=== PATIENT | female | born 1990 | race Caucasian/White ===

== ENCOUNTER 2016-08-18 09:46 | Day surgery (SDC) | payer OTHER ==
[2016-08-17 11:49] VITALS: BMI 23.8
[~2016-08-18] VITALS: Ht 165.1 cm; Wt 68.6 kg
[2016-08-18] VITALS (12 sets, daily range): BP systolic 103–125; BP diastolic 58–79; PULSE 87–120; RESP 14–27; Ht 165.1 cm; Wt 68.6 kg
[2016-08-18] MEDS ORDERED: [UNRECOGNIZED DRUG - CODE] PO (10:43)
[2016-08-18] MEDS ORDERED: HYDR-3025 PO (11:19)
[2016-08-18] MEDS ORDERED: IBUP400T22 PO (11:19)
--- NOTE | 2016-08-18 11:47 | HPN ---
Date/Time of Note Date/Time of Note DATE: 08/18/16 TIME: 11:46 Interval H&P Admission Note Pt. seen H&P reviewed: No system changes BEN DENIS MD Aug 18, 2016 11:46
[2016-08-18] MEDS ORDERED: CEFAZOLIN 2 GM/50 ML (PMX) 50 ML IVPB ONE (13:00)
[2016-08-18] MEDS ORDERED: GABAPENTIN 300 MG CAP PO ONE (13:00)
[2016-08-18] MEDS ORDERED: oxyCODONE (CR) 10 MG TAB [oxyCONTIN] PO ONE (13:00)
[2016-08-18] MEDS ORDERED: traMADol 50 MG TAB PO ONE (13:00)
[2016-08-18] MEDS ORDERED: BUPIVACAINE 0.5% (SDV) 30 ML, morphine SULFATE (PF) 8 MG, EPINEPHrine 0.3 MG, KETOROLAC... IRR SCH ×7 (13:00)
[2016-08-18] MEDS ORDERED: DEXAMETHASONE 2 MG TAB PO ONE (13:00)
[2016-08-18] MEDS ORDERED: TRIAMCINOLONE ACET 40 MG/ML INJ ONE (13:03)
[2016-08-18] MEDS ORDERED: FENTAnyl 50 MCG/ML VIAL ONE (13:53)
[2016-08-18] MEDS ORDERED: MIDAZOLAM 1 MG/ML 2 ML INJ ONE (13:54)
[2016-08-18] MEDS ORDERED: ONDANSETRON 4 MG INJ IV PRN (15:00)
[2016-08-18] MEDS ORDERED: MEPERIDINE 25 MG INJ IV PRN (15:00)
[2016-08-18] MEDS ORDERED: METOCLOPRAMIDE 10 MG INJ IV PRN (15:00)
[2016-08-18] MEDS ORDERED: HYDROmorphONE (0.2 MG/ML) 10ML SYG IV PRN ×2 (15:00)
[2016-08-18] MEDS ORDERED: FENTAnyl 50 MCG/ML VIAL IV PRN (15:00)
[2016-08-18] MEDS ORDERED: DIPHENHYDRAMINE 50 MG INJ IV PRN (15:00)
[2016-08-18] MEDS ORDERED: PROPOFOL 20 ML ONE (15:01)
[2016-08-18] MEDS ORDERED: LIDOCAINE 2% (SDV) 5 ML INJ ONE (15:01)
[2016-08-18] MEDS ORDERED: ONDANSETRON 4 MG INJ ONE (15:01)
[2016-08-18] MEDS ORDERED: ROCURONIUM 50 MG INJ ONE (15:01)
[2016-08-18] MEDS ORDERED: NEOSTIGMINE 3 MG/3 ML SYRINGE ONE (15:14)
[2016-08-18] MEDS ORDERED: GLYCOPYRROLATE 1 MG INJ ONE (15:14)
[2016-08-18] MEDS ORDERED: CEFAZOLIN 1 GM INJ ONE (15:15)
--- NOTE | 2016-08-18 15:18 | PDOCDIS ---
Discharge Instructions DIAGNOSIS Discharge Diagnosis: Bilateral hip labral tears CONDITION Patient Condition: Good HOME CARE INSTRUCTIONS: Diet Instructions: Regular ACTIVITY: Activity Restrictions: Slowly Increase Activity Keep Limb Elevated Bathing Restrictions: Shower FOLLOW UP/APPOINTMENTS Appointments 2 weeks SCHOOL/WORK RELEASE May return to School/Work with: With Restrictions School/Work Release Comment: Foot Flat weightbearing with crutches for four weeks BEN DENIS MD Aug 18, 2016 15:18
--- NOTE | 2016-08-18 15:26 | RADRPT ---
PROCEDURE: Intraoperative imaging of the right hip with fluoroscopy. CLINICAL INDICATION: Right hip pain. Intraoperative. TECHNIQUE: 2 images of the right hip were obtained in the operating room with an image intensifier . No radiologist was in attendance. 0.1 minutes of fluoroscopy time was used. COMPARISON: No prior study is available for comparison. FINDINGS: Images demonstrate surgical instruments overlying the right hip. IMPRESSION: 1. Satisfactory intraoperative imaging of the right hip. RPTAT: QQ .Saran Eduardo MD, MD Date Time Electronically viewed and signed by .Saran Eduardo MD, MD on 08/18/2016 15:26 .R/
--- NOTE | 2016-08-18 17:47 | OPR ---
DATE OF OPERATION: 08/18/2016 ATTENDING PHYSICIAN: Ben Hardin MD BACK END ARCHITECT: Tobin Langston MD PREOPERATIVE DIAGNOSIS: Right hip labral tear with left hip labral tear. POSTOPERATIVE DIAGNOSES: 1. Right hip labral tear. 2. Right hip impingement. 3. Left hip labral tear. PROCEDURES: 1. Right hip arthroscopic labral repair with arthroscopic capsular closure. 2. Right hip arthroscopic femoral neck resection. 3. Left hip injection 4. Ultrasonic guidance for left hip injection. Resist Coater Developer surgeon Tobin Langston MD, was asked to be present at my request as a result of the significant surgical complexity associated with this procedure including positioning of the extremity, manipulation and protection of the neurovascular structures. In my opinion, the assistance offered by a surgical technology instructor is insufficient, and Dr. Langston should be compensated for his time. PROCEDURE IN DETAIL: Following administration of general endotracheal anesthesia, the patient was placed in the supine position. The left lower extremity was prepped and draped in usual sterile fashion. Using ultrasound guidance, the left hip was then injected with 80 mg of Kenalog. A confirmatory image was obtained. A band-aid was applied. The right hip was then addressed. A local anesthetic block was then performed for postop pain control. Sterile prep and drape was then placed, and the patient was placed in the Rosario- NephVdopia traction device. Traction was applied across the right lower extremity using endoscopic and fluoroscopic guidance. Anterior and anterolateral portals were then established. Diagnostic arthroscopy revealed a significant anterolateral labral tear from about the 1-o'clock position posteriorly to the 9 -o'clock position with significant peripheral inflammation consistent with pincer impingement. The ligamentum teres had severe synovitis. Femoral cartilage was normal. There was grade II softening at the chondrolabral junction of the acetabulum in that same arc as the labral detachment. A capsulotomy was then performed. The sublabral recess was then cleared of soft tissue, and a bony overhang was then resected including the anterior and inferior component that was very prominent. The ligamentum teres was also debrided down to stable tissue. Two Arthrex PushLock anchors were then placed around after placing 2 circumferential stitches around the labrum. The capsular closure was obtained using the sutures from the repair that were passed in a mattress fashion. Traction was then released, and a good labral seal was noted. The capsule was then closed, and a watertight closure was obtained. The joint was then irrigated, the portals closed using 4-0 Monocryl sutures, Steri-Strips, sterile dressing. The patient was awakened, transported to recovery in a stable condition, tolerated procedure well. Dictated By: BEN MO/MAKENZIE Conf#: [id number] DID#: [id number] MTDD
--- NOTE | 2016-08-23 13:10 | OPR ---
DATE OF OPERATION: 08/18/2016 ADDENDUM PREOPERATIVE DIAGNOSIS: Right hip labral tear with left hip labral tear. POSTOPERATIVE DIAGNOSES: 1. Right hip labral tear. 2. Right hip impingement. 3. Left hip labral tear. PROCEDURES: 1. Right hip arthroscopic labral repair with arthroscopic capsular closure. 2. Left hip injection. 3. Left hip ultrasonic guidance for injection. Dictated By: BEN MO/MAKENZIE Conf#: [id number] DID#: [id number]
== END 2016-08-18 17:56 | disposition home or self-care (01) ==
LOC: SDS 09:46
PROVIDERS: ATTEND Orthopaedic Surgery
DX: S73.191A Other sprain of right hip, initial encounter (principal); S73.192A Other sprain of left hip, initial encounter; M25.852 Other specified joint disorders, left hip; X58.XXXA Exposure to other specified factors, initial encounter; Y99.8 Other external cause status; Y92.89 Other specified places as the place of occurrence of the external cause
CPT/HCPCS: 29916; 73530; 84703; J0171; J0690; J0735; J1170; J1885; J2175; J2250; J2274; J2405; J2710; J3010; J3301; J3370

== ENCOUNTER 2016-10-27 11:53 | Day surgery (SDC) | payer OTHER ==
[2016-10-27] VITALS (16 sets, daily range): BP systolic 111–132; BP diastolic 57–73; PULSE 72–120; RESP 11–23; Ht 165.1 cm; Wt 66.0 kg
[~2016-10-27] VITALS: Ht 165.1 cm; Wt 66.0 kg
[~2016-10-27 11:53] MED LIST: BUPIVACAINE 0.5% (SDV) 30 ML, morphine SULFATE (PF) 8 MG, EPINEPHrine 0.3 MG, KETOROLAC... IRR SCH; CEFAZOLIN 2 GM/50 ML (PMX) 50 ML IVPB ONE; DEXAMETHASONE 1 MG TAB PO ONE; GABAPENTIN 300 MG CAP PO ONE; HYDR-3025 PO; IBUP400T22 PO; ROCURONIUM 50 MG INJ ONE; [UNRECOGNIZED DRUG - CODE] PO; oxyCODONE (CR) 10 MG TAB [oxyCONTIN] PO ONE; traMADol 50 MG TAB PO ONE
[2016-10-27] MEDS ORDERED: OXYC-209 PO (12:50)
[2016-10-27] MEDS ORDERED: BACITRACIN 50000 UNITS INJ ONE (14:32)
[2016-10-27] MEDS ORDERED: SODIUM CL BACTERIOSTATIC 30 ML INJ ONE (14:35)
[2016-10-27] MEDS ORDERED: POLYMYXIN B 500000 UNIT INJ ONE (14:35)
[2016-10-27] MEDS ORDERED: VANCOMYCIN 1 GM INJ ONE (14:35)
--- NOTE | 2016-10-27 14:52 | HPN ---
Date/Time of Note Date/Time of Note DATE: 10/27/16 TIME: 14:52 Interval H&P Admission Note Pt. seen H&P reviewed: No system changes BEN DENIS MD Oct 27, 2016 14:52
[2016-10-27] MEDS ORDERED: MIDAZOLAM 1 MG/ML 2 ML INJ ONE (15:23)
[2016-10-27] MEDS ORDERED: FENTAnyl 50 MCG/ML VIAL ONE (15:23)
[2016-10-27] MEDS ORDERED: LIDOCAINE 2% (SDV) 5 ML INJ ONE (15:25)
[2016-10-27] MEDS ORDERED: PROPOFOL 20 ML ONE (15:25)
[2016-10-27] MEDS ORDERED: ONDANSETRON 4 MG INJ ONE (16:15)
[2016-10-27] MEDS ORDERED: DEXAMETHASONE 4 MG/ML 1 ML INJ ONE (16:15)
[2016-10-27] MEDS ORDERED: METOCLOPRAMIDE 10 MG INJ ONE (16:15)
[2016-10-27] MEDS ORDERED: DIPHENHYDRAMINE 50 MG INJ IV PRN (16:30)
[2016-10-27] MEDS ORDERED: ONDANSETRON 4 MG INJ IV PRN (16:30)
[2016-10-27] MEDS ORDERED: FENTAnyl 50 MCG/ML VIAL IV PRN (16:30)
[2016-10-27] MEDS ORDERED: PROCHLORPERAZINE 10 MG INJ IV PRN (16:30)
[2016-10-27] MEDS ORDERED: MEPERIDINE 25 MG INJ IV PRN (16:30)
[2016-10-27] MEDS ORDERED: HYDROmorphONE (0.2 MG/ML) 10ML SYG IV PRN ×2 (16:30)
[2016-10-27] MEDS ORDERED: METOCLOPRAMIDE 10 MG INJ IV PRN (16:30)
--- NOTE | 2016-10-27 16:43 | PDOCDIS ---
Discharge Instructions DIAGNOSIS Discharge Diagnosis: Hip labral tear CONDITION Patient Condition: Good HOME CARE INSTRUCTIONS: Diet Instructions: Regular ACTIVITY: Activity Restrictions: Slowly Increase Activity Bathing Restrictions: Shower FOLLOW UP/APPOINTMENTS Appointments TWO WEEKS SCHOOL/WORK RELEASE May return to School/Work with: With Restrictions School/Work Release Comment: Foot flat weight bearing for four weeks BEN DENIS MD Oct 27, 2016 16:42
--- NOTE | 2016-10-27 17:44 | OPR ---
DATE OF OPERATION: 10/27/2016 SURGEON: Ben Hardin MD SOFTWARE ENGINEERING ANALYST: Colton Egan PREOPERATIVE DIAGNOSIS: Left hip labral tear with impingement. POSTOPERATIVE DIAGNOSES: 1. Left hip labral tear. 2. Left hip impingement. OPERATION PERFORMED: Left hip arthroscopic labral repair. Shank Inspector surgeon Danielito Egan MD was asked to be present at my request as a result of significant cee rgical complexity associated with this procedure including positioning of the 70-degree arthroscope, which is significantly more complex than a standard arthroscope. In my opinion, the assistance off ered by a darkroom technician is insufficient, and Dr. Egan should be compensated for his time. PROCEDURE IN DETAIL: Following administration of general anesthesia with local infiltration of ropi vacaine and Duramorph, patient was then placed in supine position on the Rosario and Nephew traction d evice. Traction was applied across the left lower extremity following sterile prep and drape. Ante rior and anterolateral portals were then created using endoscopic and fluoroscopic guidance. Diagno stic arthroscopy revealed a significant labral detachment anterolaterally from the approximately 11- o'clock position posteriorly to the 3-o'clock position. There was grade III chondromalacia at the c hondrolabral junction with significant fraying and peripheral inflammation consistent with pincer im pingement. The ligamentum teres had moderate to severe synovitis as well. The femoral cartilage wa s normal. Small capsulotomy was then performed over the area of the bony impingement. The sublabral recess wa s then cleared of soft tissue, and a resection of the extensive anterior and inferior iliac spine pr ominence was then undertaken. A good decompression was confirmed endoscopically. Labral repair was then repaired with 2 Arthrex PushLock anchors. The 2 sutures were passed circumfe rentially around the labrum. Each of the sutures was then incorporated into an anchor. The anchors were impacted, the sutures advanced and a solid repair completed. The leg was then flexed, periphe ral compartment investigated. No significant peripheral compartment pathology was noted. The joint was then irrigated thoroughly. The wounds were closed using 4-0 Monocryl, Steri-Strips, sterile dr essing. The patient was awakened, transported to recovery room in stable condition, tolerated proce dure well. Dictated By: BEN MO/NTS Conf#: [id number] [facility]#: [id number]
--- NOTE | 2016-10-27 19:12 | RADRPT ---
PROCEDURE: Intraoperative imaging of the left hip with fluoroscopy. CLINICAL INDICATION: Left hip pain. Intraoperative. TECHNIQUE: 3 images of the left hip were obtained in the operating room with an image intensifier. No radiologist was in attendance. 19 seconds of fluoroscopy time was used. COMPARISON: No prior study is available for comparison. FINDINGS: Images demonstrate surgical instruments overlying the left hip. IMPRESSION: 1. Satisfactory intraoperative imaging of the left hip. RPTAT: QQ .Saran Eduardo MD, MD Date Time Electronically viewed and signed by .Saran Eduardo MD, on 10/27/2016 19:11 .R/
== END 2016-10-27 18:25 | disposition home or self-care (01) ==
LOC: SDS 11:53
PROVIDERS: ATTEND Orthopaedic Surgery
DX: M25.852 Other specified joint disorders, left hip (principal); S73.192D Other sprain of left hip, subsequent encounter; X58.XXXD Exposure to other specified factors, subsequent encounter
CPT/HCPCS: 29916; 73530; J0171; J0735; J1100; J1170; J1885; J2175; J2250; J2274; J2405; J2765; J3010; J3370